=== PATIENT | female | born 1975 | race Caucasian/White ===

== ENCOUNTER 2017-08-08 10:47 | Emergency (ER) | payer BC ==
--- OUTSIDE RECORDS SUMMARY | 2017-08-08 11:02 | XMS REPORT ---
:1975 External Reference #:[id number] Author Organization [facility] Address [address] [place] [address] Phone [phone] Care Team Providers Name Role Phone HCP given Primary Care Physician Unavailable Payers Type Date Identification Numbers Payment Provider Subscriber Commercial Effective: Policy Number: Wero Yoder 2016 [id number] Ind/Ppo/Hmo/Pos PayID: [id number] [address] [address] [place] [address] Problems Date Description Provider Status Onset: 07/30/2012 Psoriasis Agustin Bergeron Active Onset: 01/05/2015 Generalized anxiety disorder Yordan Johnston D.O. Active Onset: 01/05/2015 Prolonged depressive adjustment Yordan Johnston D.O. 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 Active Family History Date Family Member(s) Problem(s) Comments General Alcoholism father General Cancer grandparents (both sides) General Heart Problems maternal side General Mental Illness maternal side Children 3 2 daughters and 1 son First Son 8 First Daughter 21 Second Daughter 20 Siblings 2 brothers Social History Type Date Description Comments Education Highest Level Completed College Marital Status Occupation Retail Sales Work Status Currently Working Cigarette Use Former Cigarette Smoker ETOH Use Rarely consumes alcohol Recreational Drug Use Has Used Illegal Drugs In The Past Smoking Patient is a former smoker Daily Caffeine Consumes Caffeine Daily Caffeine Consumes on average 5 cups of coffee per day Daily Caffeine Consumes on average 2 cups of tea per day Enjoy Exercising Enjoys exercising Sun Exposure Uses sunscreen Seat Belt/Car Seat always uses seat belt Guns in Home Yes, Locked Up Smoke Alarms Negative For Yes smoke alarm Contraceptive Methods Current methods include tubal ligation Age 1st [place] 12 Years Old # Partners in a Lifetime Partners 5-10 STD's No STD History Sexual Hx text Patient states heterosexual Allergies, Adverse Reactions, Alerts Date Description Reaction Status Severity Comments 07/30/2012 NKDA active Medications Medication Date Status Form Strength Qnty SIG Indications Ordering Provider Methylphenidate 07/15 Active Tablets 20mg 30tab 1 by mouth F90.0 Sopchak, s three times Yordan, a day D.O. Amitriptyline 06/24 Active Tablets 10mg 1 by mouth Sopchak, HCL every night Yordan, at bedtime D.O. Arnica 05/06 Active Gel 45gm use twice a M25.561 day to knee Yordan, for pain D.O. Niacin 05/05 Active one po daily Fish Oil 05/05 Active one po daily Probiotic 05/05 Active one po daily Biotin 05/05 Active one po daily Gabapentin 07/02 Active Capsules 300mg 270ca 1 by mouth F41.1 ps three times Yordan, a day D.O. Depo-Provera 07/01 Active Suspension 150mg/ml administer 1 milliliters intramuscul suly every 90 days for control Wellbutrin XL 11/29 Active Tablets ER 300mg 90tab 1 by mouth F41.1 24HR s every day Yordan, D.O. Valtrex 09/12 Active Tablets 500mg 42tab give 1 gram B00.1 s orally Yordan, every 12 D.O. hours for 10 days as needed for cold sores Xanax 08/23 Active Tablets 0.5mg 90tab 1 tab by F41.9 s mouth three Yordan, times a D.O. day, as needed, for panic attacks code a Kelp 07/22 Active Tablets Harrison Cyndee Hughes Multiple Vitamin 07/21 Active Tablets Harrison Saul, M.D. Vitamin D- 07/21 Active Tablets one tab po Harrison daily if Saul, not in your M.D. mvi Calcium Active Unknown Vitamin C Active 500mg 2 daily Unknown Vitamin B12 Active 2500mcg 1 daily Unknown Magnesium Active Unknown Methylphenidate 05/06 Hx Tablets 10mg 90tab 1 tab by F90.0 Marlysk, s mouth three Yordan, - times a day D.O. 07/15 with 5mg tablet Methylphenidate 05/06 Hx Tablets 5mg 90tab 1 tab three F90.0 Sopchak, HCL s times a day Yordan, - with 10mg D.O. 07/15 Nortriptyline 05/06 Hx Capsules 10mg 60cap take 1-2 G47.00 Sopchak, s capsule by Yordan, - mouth D.O. 06/24 nightly /2017 (30-60 minutes before bed) Amitriptyline 04/01 Hx Tablets 10mg 30tab 1 by mouth G47.00 Sopchak, HCL s every night Yordan, - at bedtime D.O. 05/06 Methylphenidate 04/01 Hx Tablets ER 27mg 30tab take one F90.0 Sopalexysk, HCL 24HR s tablet by Yordan, - mouth every D.O. 05/06 maximum daily dose=one tablet Meloxicam 12/25 Hx Tablets 15mg 30tab Take One M25.561 Harrison s Tablet By Saul, - Mouth Once M.D. 05/05 Daily For Joint Pain Buspirone HCL 01/02 Hx Tablets 7.5mg 180ta 1 cap by F41.1 Vickie, bs mouth twice Yordan, - a day D.O. 07/01 Wellbutrin XL 11/29 Hx Tablets ER 150mg 14tab 1 by mouth 300.02 Harrison 24HR s every Saul, - morning for M.D. 11/29 4 days and then increase to 300 mg qam Gabapentin 07/31 Hx Capsules 100mg 270ca 1 cap three S29.009A Vickie, ps times a day Yordan, - or just at D.O. 07/02 bedtime needed chest wall pain Fluoxetine HCL 07/25 Hx Capsules 20mg 120ca 4 by mouth 301.4 Vickie, ps every day Yordan, - D.O. 12/20 296.31 309.1 Fluoxetine HCL 01/26/2014 - Hx Capsules 20mg 90caps 1 daily 301.4 Sopchamiguel ángel, 07/25/2014 Yordan, D.O. Fluoxetine 01/20/2014 - Hx Capsules 20mg 90caps 3 qd, wean 301.4 Silcoff, 01/26/2014 down to 1 qd Saul over next 6 M.D. weeks Methylphenidate HCL 09/30/2013 - Hx Tablets 10mg 90tabs 1 tab by F90.0 Vickie, 04/01/2017 mouth Yordan, bid-tid: D.O. every morning, noon and every late afternoon Concerta 08/06/2013 - Hx Tablets ER 18mg 60tabs 1 po 8 am, aHrrison, 09/30/2013 and 12:30 if Saul, needed M.D. Fluoxetine 07/29/2013 - Hx Capsules 20mg 90caps 3 qd, wean 301.4 Silcoff, 09/14/2013 down to 1 qd Saul over next 6 M.D. weeks Fluoxetine HCL 06/30/2013 - Hx Capsules 40mg 60caps 2 qam 301.4 Silcoff , 07/29/2013 Cyndee Hughes Fluoxetine HCL 05/02/2013 - Hx Capsules 20mg 90caps Take 2 caps 301.4 Silcoff, 06/30/2013 for several caroline Hughes then M.D. increase to 3 caps qam Lorazepam 05/02/2013 - Hx Tablets 0.5mg 60tabs 1 po bid, Silcoff, 01/26/2014 prn, for Saul, anxiety M.D. Fluvoxamine Maleate 01/21/2013 - Hx Tablets 50mg 21tabs 1 tab qhs x 296.31 Silcoff, 02/13/2013 7 days then Saul, increase 2 M.D. tabs Fluvoxamine Maleate 01/21/2013 - Hx Tablets 100mg 60tabs 1.5 po x 7d, 296.31 Silcoff, 04/11/2013 then Saul, increase to M.D. 2 tabs qhs Voltaren 01/21/2013 - Hx Gel 1% 100gram 2-4 grams 786.50 Silcoff, 07/31/2014 apply twice Saul a day x 3 M.D. wks, prn Fish Oil 12/27/2012 - Hx Capsules otc 1 po qod Silcoff, 04/09/2015 alternating Saul with Star.Lakeshia flaxseed Dexmethylphenidate 08/23/2012 - Hx Tablets 5mg 120tabs 1 -2 qam and 314.00 Silcoff, HCL 08/06/2013 q-afternoon, Saul prn M.D. Lorazepam 08/23/2012 - Hx Tablets 0.5mg 60tabs 1 po bid, Silcoff, 10/28/2012 prn, for Saul anxiety M.D. Tramadol HCL 07/30/2012 - Hx Tablets 50mg 60tabs 1-q6 hours 719.47 Sopchak, 12/11/2014 Zaida Farr Clobetasol 07/30/2012 - Hx Cream 0.05% 60g apply small 696.8 Silcoff, Propionate Emollient 08/13/2012 amt to Saul affected M.D. areas bid for up to 2 weeks Lorazepam 07/22/2012 - Hx Tablets 60tabs 1 po bid, Unknown 08/23/2012 prn, for anxiety [facility] Wort 07/22/2012 - Hx Powder unknown Silcoff, 02/28/2013 dose, takes moe Hughes M.D. depression Xanax 07/21/2012 - Hx Tablets 60tabs 1 -2 tab po Unknown 08/23/2012 tid, prn Ritalin 07/21/2012 - Hx Tablets 60tabs 1 po bid: Unknown 08/23/2012 qam, qnoon Flaxseed 07/21/2012 - Hx Misc qd Silcoff, 05/05/2017 Cyndee Hughes Iron - Hx Tablets 325(65 1 po daily Unknown 11/28/2014 Fe) mg Magnesium - Hx Capsules 2 po daily Unknown 11/28/2014 Immunizations CPT Code Status Date Vaccine Lot # [id number] Given 09/13/2014 Adacel or Boostrix, TDaP [id number] Vital Signs Date Vital Result Comment 07/15/2017 BP Systolic 128 mmHg BP Diastolic 84 mmHg 06/25/2017 BP Systolic 152 mmHg BP Diastolic 88 mmHg Weight 112.00 lb 05/06/2017 BP Systolic 140 mmHg BP Diastolic 88 mmHg Weight 115.00 lb with sneakers 04/01/2017 BP Systolic 138 mmHg BP Diastolic 88 mmHg Height 64.25 inches 5'4.25" Weight 112.00 lb BMI (Body Mass Index) 19.1 kg/m2 12/25/2016 BP Systolic 132 mmHg BP Diastolic 80 mmHg Weight 118.00 lb 07/02/2016 BP Systolic 130 mmHg BP Diastolic 80 mmHg Height 66 inches 5'6" Weight 120.00 lb BMI (Body Mass Index) 19.4 kg/m2 01/03/2016 BP Systolic 122 mmHg BP Diastolic 82 mmHg Height 64.5 inches 5'4.50" Weight 124.00 lb BMI (Body Mass Index) 21.0 kg/m2 04/10/2015 BP Systolic 122 mmHg BP Diastolic 60 mmHg Weight 149.00 lb 01/05/2015 BP Systolic 122 mmHg BP Diastolic 76 mmHg Weight 144.00 lb w/shoes 11/29/2014 BP Systolic 124 mmHg BP Diastolic 86 mmHg Height 65 inches 5'5" Weight 143.00 lb shoes on BMI (Body Mass Index) 23.8 kg/m2 09/13/2014 BP Systolic 120 mmHg BP Diastolic 70 mmHg Weight 152.00 lb shoes on 07/31/2014 BP Systolic 112 mmHg BP Diastolic 78 mmHg Height 65 inches 5'5" Weight 150.00 lb BMI (Body Mass Index) 25.0 kg/m2 Last Menstrual Period [id number] 11/14/2013 BP Systolic 108 mmHg BP Diastolic 71 mmHg Heart Rate 56 /min Body Temperature 98.6 F Weight 111.00 lb w/shoes 09/30/2013 BP Systolic 109 mmHg BP Diastolic 76 mmHg Heart Rate 55 /min Height 54.50 inches 4'6.50" Weight 105.00 lb BMI (Body Mass Index) 24.9 kg/m2 05/23/2013 BP Systolic 110 mmHg BP Diastolic 66 mmHg Heart Rate 56 /min Height 64.5 inches Weight 105.00 lb BMI (Body Mass Index) 17.7 kg/m2 05/02/2013 BP Systolic 125 mmHg BP Diastolic 74 mmHg Heart Rate 61 /min Weight 105.00 lb 02/28/2013 BP Systolic 120 mmHg BP Diastolic 73 mmHg Heart Rate 53 /min Weight 108.00 lb BMI (Body Mass Index) 17.8 kg/m2 01/21/2013 BP Systolic 102 mmHg BP Diastolic 69 mmHg Heart Rate 55 /min Height 65.25 inches 5'5.25" shoes on Weight 113.00 lb shoes on BMI (Body Mass Index) 18.7 kg/m2 12/27/2012 BP Systolic 110 mmHg BP Diastolic 60 mmHg Heart Rate 61 /min Weight 106.00 lb Last Menstrual Period [id number] 08/23/2012 BP Systolic 119 mmHg BP Diastolic 66 mmHg Heart Rate 52 /min Weight 107.00 lb 07/30/2012 BP Systolic 115 mmHg BP Diastolic 71 mmHg Heart Rate 54 /min Height 64 inches 5'4" Weight 102.00 lb BMI (Body Mass Index) 17.5 kg/m2 Results Test Date Test Result H/L Range Note Lipid Profile (Trig/Chol/HDL) 07/08/2017 Triglycerides 54 mg/dL 1 Cholesterol 198 mg/dL 2 HDL Cholesterol 71.4 mg/dL 3 LDL Cholesterol 116 mg/dL 4 Laboratory test finding 07/08/2017 TSH (Thyroid Stim Horm) 0.64 mcIU/mL 0.34-5.60 5 Comp Metabolic Panel 07/08/2017 Sodium 138 mmol/L 133-145 Potassium 4.3 mmol/L 3.5-5.0 Chloride 106 mmol/L 101-111 Co2 Carbon Dioxide 27 mmol/L 22-32 Anion Gap 5 mmol/L 2-11 Glucose 99 mg/dL 70-100 Blood Urea Nitrogen 14 mg/dL 6-24 Creatinine 0.72 mg/dL 0.51-0.95 BUN/Creatinine Ratio 19.4 8-20 Calcium 9.4 mg/dL 8.6-10.3 Total Protein 6.5 g/dL 6.4-8.9 Albumin 4.1 g/dL 3.2-5.2 Globulin 2.4 g/dL 2-4 Albumin/Globulin Ratio 1.7 1-3 Total Bilirubin 0.50 mg/dL 0.2-1.0 Alkaline Phosphatase 26 U/L Low 34-104 Alt 23 U/L 7-52 Ast 24 U/L 13-39 Egfr Non- 88.0 >60 Egfr 113.2 >60 6 Laboratory test finding 07/08/2017 Vitamin B12 1385 pg/mL High 180-914 7 Magnesium 2.2 mg/dL 1.9-2.7 8 CBC Auto Diff 07/08/2017 White Blood Count 5.4 10^3/uL 3.5-10.8 Red Blood Count 4.08 10^6/uL 4.0-5.4 Hemoglobin 13.0 g/dL 12.0-16.0 Hematocrit 38 % 35-47 Mean Corpuscular Volume 92 fL 80-97 Mean Corpuscular Hemoglobin 32 pg High 27-31 Mean Corpuscular HGB Conc 35 g/dL 31-36 Red Cell Distribution Width 13 % 10.5-15 Platelet Count 345 10^3/uL 150-450 Mean Platelet Volume 8 um3 7.4-10.4 Abs Neutrophils 3.3 10^3/uL 1.5-7.7 Abs Lymphocytes 1.7 10^3/uL 1.0-4.8 Abs Monocytes 0.3 10^3/uL 0-0.8 Abs Eosinophils 0.1 10^3/uL 0-0.6 Abs Basophils 0.1 10^3/uL 0-0.2 Abs Nucleated RBC 0 10^3/uL Granulocyte % 60.1 % 38-83 Lymphocyte % 31.0 % 25-47 Monocyte % 5.7 % 1-9 Eosinophil % 1.6 % 0-6 Basophil % 1.6 % 0-2 Nucleated Red Blood Cells % 0 Laboratory test 07/08/2017 Vitamin D Total 62.2 ng/mL High 20-50 9 finding 25(Oh) Laboratory test 06/25/2017 Surgical Pathology SEE RESULT BELOW 10 finding Xray 12/25/2016 X-Ray, Knee, 3 Views, <pending> RT Urine Drug Screen 07/02/2016 Ua Cocaine - Inhouse Ua Opiates - Ua Amphetamines - Urine Methanphetamines - Urine Benzodiazepines QN [place] - Urine Oxycodone QL - Laboratory test finding 04/30/2015 Throat Beta Strep Culture SEE RESULT BELOW 11 Rapid Strep Molecular Negative Negative 12 Urinalysis Profile 12/04/2014 Urine Color Yellow Urine Appearance Cloudy Urine Specific [place] 1.025 1.010-1.030 Urine pH 6.0 5-9 Urine Urobilinogen Negative Negative Urine Ketones Trace Negative Urine Protein 1+(30 mg/dL) Negative Urine Leukocytes Negative Negative Urine Blood 2+ Negative Urine Nitrite Negative Negative Urine Bilirubin Negative Negative Urine Glucose Negative Negative Urine White Blood Cell Absent Absent Urine Red Blood Cell 2+(6-10/hpf) Absent Urine Bacteria Absent Absent Urine Squamous Epithelial Cell Present Absent Urine Hyaline Casts Present Absent Laboratory test finding 12/04/2014 Magnesium 2.0 mg/dL 1.9-2.7 Creatine Kinase(CK) 106 U/L 10-223 Troponin-I (TnI) 0.00 ng/mL <0.03 13 TSH (Thyroid Stim Horm) 0.91 ?IU/mL 0.34-5.60 Comp Metabolic Panel 12/04/2014 Sodium 137 mmol/L 133-145 Potassium 3.6 mmol/L 3.5-5.0 Chloride 105 mmol/L 101-111 Co2 Carbon Dioxide 26 mmol/L 22-32 Anion Gap 6 mmol/L 2-11 Glucose 95 mg/dL 70-100 Blood Urea Nitrogen 13 mg/dL 6-24 Creatinine 0.64 mg/dL 0.51-0.95 BUN/Creatinine Ratio 20.3 High 8-20 Calcium 9.4 mg/dL 8.6-10.3 Total Protein 7.0 g/dL 6.4-8.9 Albumin 4.3 g/dL 3.2-5.2 Globulin 2.7 g/dL 2-4 Albumin/Globulin Ratio 1.6 1-3 Total Bilirubin 0.50 mg/dL 0.2-1.0 Alkaline Phosphatase 52 U/L 34-104 Alt 16 U/L 7-52 Ast 18 U/L 13-39 Egfr Non- 102.3 >60 Egfr 131.5 >60 14 Laboratory test finding 12/04/2014 Lactic Acid 1.0 mmol/L 0.5-2.2 Inr/Protime 12/04/2014 Inr 1.00 0.78-1.07 CBC Auto Diff 12/04/2014 White Blood Count 6.3 10^3/uL 4.8-10.8 Red Blood Count 4.44 10^6/uL 4.0-5.4 Hemoglobin 13.1 g/dL 12.0-16.0 Hematocrit 40 % 35-47 Mean Corpuscular Volume 90 fL 80-97 Mean Corpuscular Hemoglobin 30 pg 27-31 Mean Corpuscular HGB Conc 33 g/dL 31-36 Red Cell Distribution Width 13 % 10.5-15 Platelet Count 376 10^3/uL 150-450 Mean Platelet Volume 8 um3 7.4-10.4 Abs Neutrophils 4.3 10^3/uL 1.5-7.7 Abs Lymphocytes 1.2 10^3/uL 1.0-4.8 Abs Monocytes 0.4 10^3/uL 0-0.8 Abs Eosinophils 0.2 10^3/uL 0-0.6 Abs Basophils 0.1 10^3/uL 0-0.2 Abs Nucleated RBC 0 10^3/uL Granulocyte % 69.4 % 38-83 Lymphocyte % 19.6 % Low 25-47 Monocyte % 6.8 % 1-9 Eosinophil % 3.1 % 0-6 Basophil % 1.1 % 0-2 Nucleated Red Blood Cells % 0.1 Urine Drug SCR ED 12/04/2014 Amphetamine Ur Screen None Detected None Detect & [facility] Barbiturates Urine Screen None Detected None Detect Benzodiazepine Urine Screen None Detected None Detect Urine Cannabinoids Screen None Detected None Detect Urine Cocaine Screen None Detected None Detect Urine Opiates Screen None Detected None Detect Urine Phencyclidine Screen None Detected None Detect 15 Laboratory test 10/20/2013 Surgical Pathology RUN DATE: , 17 finding <SEE NOTE> Human Papilloma Virus 12/29/2012 Human Papillomavirus See Comment 18 Source Human Papillomavirus High Risk Negative Negative 19 Laboratory test finding 12/27/2012 Cytology RUN DATE: , 21 <SEE NOTE> Urine Drug Screen 08/23/2012 Urine THC Screen - Inhouse Ua Cocaine - Ua Opiates - Ua Amphetamines - Urine Methanephrine Random - Urine Phenyclidine GC/MS - Urine Mdma QN Random - Ua Barbiturates - Urine Benzodiazepines QN [place] - Ua Methadone - Urine Tricyclc Antidepress RND - Urine Oxycodone QL - Ua Inhouse 08/23/2012 Ua Glucose - Ua Bilirubin - Ua Ketones - Ua Specific [place] 1.010 Ua Blood - Ua PH 8.0 Ua Protein tr Ua Urobilinogen - Ua Nitrite - Ua Leukocytes - Laboratory test finding 07/30/2012 TSH (Thyroid Stimulating 0.89 miu/mL 0.34-5.60 Horm) Comp Metabolic Panel 07/30/2012 Sodium 138 mmol/L 133-145 Potassium 4.2 mmol/L 3.5-5.0 Chloride 101 mmol/L 101-111 Co2 Carbon Dioxide 29.0 mmol/L 22-32 Anion Gap 8.0 mmol/L 2-11 Glucose 76 mg/dL 70-100 Blood Urea Nitrogen 8 mg/dL 6-24 Creatinine 0.70 mg/dL 0.50-1.40 BUN/Creatinine Ratio 11.4 8-20 Calcium 10.6 mg/dL High 8.1-9.9 Total Protein 6.6 g/dL 6.2-8.1 Albumin 4.5 g/dL 3.6-5.4 Globulin 2.1 g/dL 2-4 Albumin/Globulin Ratio 2.1 1-3 Total Bilirubin 0.8 mg/dL 0.4-1.5 Alkaline Phosphatase 45 U/L 30-110 Alt 40 U/L 14-54 Ast 41 U/L 12-42 Egfr Non- 93.2 >60 Egfr 119.8 >60 22 CBC Auto Diff 07/30/2012 White Blood Count 5.5 10^3/uL 4.8-10.8 Red Blood Count 4.33 10^6/uL 4.0-5.4 Hemoglobin 14.0 g/dL 12.0-16.0 Hematocrit 40 % 35-47 Mean Corpuscular Volume 93 fL 80-97 Mean Corpuscular Hemoglobin 32 pg High 27-31 Mean Corpuscular HGB Conc 35 g/dL 31-36 Red Cell Distribution Width 13 % 10.5-15 Platelet Count 273 10^3/uL 150-450 Mean Platelet Volume 9 um3 7.4-10.4 Abs Neutrophils 3.5 10^3/uL 1.5-7.7 Abs Lymphocytes 1.6 10^3/uL 1.0-4.8 Abs Monocytes 0.3 10^3/uL 0-0.8 Abs Eosinophils 0 10^3/uL 0-0.6 Abs Basophils 0.1 10^3/uL 0-0.2 Abs Nucleated RBC 0 10^3/uL Granulocyte % 64.0 % 38-83 Lymphocyte % 28.7 % 25-47 Monocyte % 5.6 % 1-9 Eosinophil % 0.5 % 0-6 Basophil % 1.2 % 0-2 Nucleated Red Blood Cells % 0.1 Ua Inhouse 07/30/2012 Ua Glucose - Ua Bilirubin - Ua Ketones - Ua Specific [place] 1.000 Ua Blood - Ua PH 7.5 Ua Protein - Ua Urobilinogen - Ua Nitrite - Ua Leukocytes - 1 Desirable: <150 Borderline High: 150-199 High: 200-499 Very High: >500 2 Desirable: <200 Borderline High: 200-239 High: >239 3 Low: <40 Desirable: 40-60 High: >60 4 Desirable: <100 Near Optimal: 100-129 Borderline High: 130-159 High: 160-189 Very High: >189 5 FASTING 12 HOUR 6 Because ethnic data is not always readily available, this report includes an eGFR for both -Americans and non- Americans. The National Kidney Disease Education Program (NKDEP) does not endorse the use of the MDRD equation for patients that are not between the ages of 18 and 70, are , have extremes of body size, muscle mass, or nutritional status, or are non- or non-. According to the National Kidney Foundation, irrespective of diagnosis, the stage of the disease is based on the level of kidney function: Stage Description GFR(mL/min/1.73 m(2)) 1 Kidney damage with normal or decreased GFR 90 2 Kidney damage with mild decrease in GFR 60-89 3 Moderate decrease in GFR 30-59 4 Severe decrease in GFR 15-29 5 Kidney failure <15 (or dialysis) 7 Normal Range 180 to 914 Indeterminate Range 145 to 180 Deficient Range <145 8 FASTING 12 HOUR 9 FASTING 12 HOUR 10 SEE RESULT BELOW Name: MARIE YODER : [address]: Yordan Johnston DO Acct: [id number] Unit: [id number] AGE: 42 Location: [facility] Re06/25/17 SEX: F Status: REG REF SPEC: [id number] HOLLY: 06/25/[address] [facility] [address]: Yordan Johnston DO REQ: [id number] RECD: 06/26/17 STATUS: SOUT _ ORDERED: LEVEL 4 COMMENTS: [id number] FINAL DIAGNOSIS Skin, left leg, biopsy: -- Dermatofibroma. -- Lesional cells extend to at least one lateral specimen edge. CLINICAL HISTORY 3 mm discoloration noted 6 weeks ago, discoloration now 2-4 mm GROSS DESCRIPTION The specimen is received in formalin labeled, Left Leg, and consists of a 0.2 cm vo-white circular skin punch excised to a depth of 0.2 cm which is submitted entirely in one cassette. Signed (signature on file) Shireen Alcala MD [id number] END OF REPORT * ML=Testing performed at Main Lab DEPARTMENT OF PATHOLOGY, [address] [place] [address] Mirza Cameron M.D. Director [place] # [id number] 11 SEE RESULT BELOW Name: MARIE YODER : [address]: Zach Thurman MD Acct: [id number] Unit: [id number] AGE: 39 Location: [facility] Re04/30/15 SEX: F Status: DEP ER SPEC: [id number] HOLLY: 04/30/15-1339 [facility] [address]: Zach Thurman MD REQ: [id number] RECD: 04/30/15 STATUS: SUNIL ROLDAN DR: Yordan Johnston DO _ SOURCE: THROAT SPDESC: ORDERED: Throat Beta Str Procedure Result Verified Site Throat Beta Strep Culture Final 05/02/15- 0741 ML Negative For Group A Beta Streptococcus * ML - MAIN LAB ([facility]) . END OF REPORT * ML=Testing performed at Main Lab DEPARTMENT OF PATHOLOGY, [address] [place] [address] Mirza Cameron M.D. Director [facility] # [id number] 12 Solvent Plant Operator: [id number] ROXI CORTES The outdoor adventure instructor and regulatory agencies both recommend that a throat culture for beta strep be performed if a Rapid Group A Strep assay yields a negative result. Therefore a culture will be automatically performed on all negative samples. 13 Reference Range and Interpretation: TnI (ng/mL) Interpretation Less Than 0.03 ng/mL Not supportive of diagnosis of [place] 0.03 - 0.50 ng/mL Indeterminate: suggest serial studies if clinically indicated. Greater than 0.5 ng/mL Consistent with diagnosis of [place] 14 Because ethnic data is not always readily available, this report includes an eGFR for both -Americans and non- Americans. The National Kidney Disease Education Program (NKDEP) does not endorse the use of the MDRD equation for patients that are not between the ages of 18 and 70, are , have extremes of body size, muscle mass, or nutritional status, or are non- or non-. According to the National Kidney Foundation, irrespective of diagnosis, the stage of the disease is based on the level of kidney function: Stage Description GFR(mL/min/1.73 m(2)) 1 Kidney damage with normal or decreased GFR 90 2 Kidney damage with mild decrease in GFR 60-89 3 Moderate decrease in GFR 30-59 4 Severe decrease in GFR 15-29 5 Kidney failure <15 (or dialysis) 15 The urine specimen was tested at the listed cutoffs: Drug class test level (ng/mL) Amphetamines 500 Barbituates 200 Benzodiazepine metabolites 200 Cocaine metabolites 150 Cannabinoids 50 Opiates 300 Pcp 25 This is a screening procedure. Positive results are not confirmed. Specimen was received without chain of custody. Results should be used for medical purposes only. 16 awaiting further results that will be reported in an addendum from [facility] 17 RUN DATE: 11/01/13 [facility] LAB LIVE PAGE 1 RUN TIME: [address] [place] [address] Specimen Inquiry Name: YODERMARIE : [address]: Saul Terry MD Acct: [id number] Unit: [id number] AGE: 38 Location: [facility] Re10/20/13 SEX: F Status: REG REF SPEC: [id number] HOLLY: 10/20/13-[address]: Saul Terry MD REQ: [id number] RECD: 10/20/13277 STATUS: SOUT _ ORDERED: YODER CONSULT, LEVEL III Consultation with Dr. Darine Narayan at [place] [facility] [employer], [place] [id number], outside accession number [id number],our surgical [id number] reported on 2013 and received on 11/01/2013. Original consultation report scanned into Pathology Consults. Final Diagnosis: Middle back mass ([id number]; 10/20/2013): Pseudocyst with necrobiotic and reactive changes. Diagnosis Comment: I have reviewed the slides representing tissue from the middle back of the above patient and see only a Pseudocyst with a suggestion of some necrobiotic change and a variety of non-specific reactive changes. Given the clinical presentation, I doubt that this lesion is associated with the underlying synovium, although radiographic and clinical information might be of some assistance. In passing, I would note that I have seen similar appearing lesions in patients receiving alternative medical therapies, such as "cupping ", and there might be some value in obtaining any relevant history. Addendum Signed (signature on file) Shireen Alcala MD 0934 FINAL DIAGNOSIS Skin and subcutaneous tissue, mid back, partial excision: Pseudocyst with myxoid material; see comment. COMMENT: Histologic sections show dermal and subcutaneous tissue with a synovium-like pseudocystic lining. Myxoid material and spindled myofibroblastic cells are present. The histologic findings are nonspecific but could represent a benign CONTINUED ON NEXT PAGE * ML=Testing performed at Main Lab DEPARTMENT OF PATHOLOGY, [facility] [employer] [place] [address] Mirza Cameron M.D. Director [facility] # [id number] RUN DATE: 11/01/13 [facility] LAB LIVE PAGE 2 RUN TIME: 933 [facility] [employer] [place], [place] [address] Specimen Inquiry Patient: MARIE YODER [id number] (Continued) SPECIMEN COMMENTS (Continued) synovial cyst. The findings were discussed with Dr. Terry who provided the additional clinical history that this approximately 5 cm. soft, mobile mass was present for a long duration over the patient's midline spine. Given this additional clinical history, the histologic possibility of a meningocele is also under consideration. This case is being sent for expert consultation to the soft tissue pathologists at [facility]. Their findings will be reported verbatim in an addendum. Correlation with clinical and imaging findings is recommended. Dr. Cameron has reviewed this case and agrees. CLINICAL HISTORY Been there for a while", painful when leaning on symmetric round, non-erythematous, moveable, soft gel like. PRE-OPERATIVE DIAGNOSIS 214.8 GROSS DESCRIPTION The specimen is received in formalin labeled Marie Yoder, Skin Mid Back and consists of a 3.8 x 2.7 x 1.8 cm. aggregate of vo-ward, rubbery, soft tissue and possible skin. The specimen is serially sectioned and entirely submitted in cassettes A through C. Signed (signature on file) Shireen Alcala MD 1800 END OF REPORT * ML=Testing performed at Main Lab DEPARTMENT OF PATHOLOGY, [address] [place] [address] Mirza Cameron M.D. Director [facility] # [id number] RESULT: Ectocervical/Endocervical 19 For types 16, 18, 31, 33, 35, 39, 45, 51, 52, 56, 58, 59 and 68. Test Performed by: [facility] - [address] [address] [address] Passenger Agent: Myron Stauffer III, M.D. 20 12/29/12 Normal pap, waiting for HPV results. 21 RUN DATE: 12/29/12 [facility] LAB LIVE PAGE 1 RUN TIME: [address] [place] [id number] Specimen Inquiry Name: MARIE YODER : [address]: Roxanne GOOD Acct: [id number] Unit: [id number] AGE: 37 Location: [facility] Re12/27/12 SEX: F Status: REG REF SPEC: [id number] HOLLY: 12/27/12-[address] [facility] [address]: Roxanne GOOD REQ: [id number] RECD: 12/28/12 STATUS: SOUT _ ORDERED: IMAGE ANALYSIS, HPV / Thin Prep FINAL DIAGNOSIS Negative for Intraepithelial lesion or Malignancy COMMENTS: Specimen sent to [facility] in [place], [place] on 12/29/12 by [id number] at 0835. Results will be reported separately. A. Ectocervical/Endocervical Specimen Adequacy: Satisfactory of evaluation Transformation zone component identified Patient Information: HPV: High risk HPV DNA testing regardless of pap results. Actual Specimen Date: 12/27/12 Last Menstrual Date: 05/11/12 Spec Date if unknown: 05/2012 Cautery: N IUD: N Lesion, grossly demonstrate: N ?: N Post Menopausal?: N Hysterectomy?: N Previous Abnormal Pap Smears?:Y If Yes, enter Diagnosis: 05/2012 Atypical Squamous cells of uncertain significance. Signed (signature on file) YAJAIRA Mccain (ASCP) 12/29/12 8109 This Pap test was evaluated with the assistance of the FandeavorPrep Test Imaging System. Due to cytologic findings at the plug sorter microscope, comprehensive manual rescreening by a Slurry Tank Tender may be required. The Pap Smear is a screening test designed to aid in the detection of premalignant and malignant conditions of the uterine cervix. It is not a diagnostic procedure and should not be used as the sole means of detecting cervical cancer. Both false- positive and false- negative reports do occur. Depending on your risk status, a Pap smear shoudl be obtained and evaluated every 1-3 years. END OF REPORT * ML=Testing performed at Main Lab DEPARTMENT OF PATHOLOGY, [facility] [employer] [place], [place] [address] RUN DATE: 12/29/12 [facility] LAB LIVE PAGE 1 RUN TIME: 925 [facility] [employer] [place], [place] [address] Specimen Inquiry Patient: MARIE YODER [id number] (Continued) Mirza Cameron M.D. Director [facility] Permit #[id number] 22 Because ethnic data is not always readily available, this report includes an eGFR for both -Americans and non- Americans. The National Kidney Disease Education Program (NKDEP) does not endorse the use of the MDRD equation for patients that are not between the ages of 18 and 70, are , have extremes of body size, muscle mass, or nutritional status, or are non- or non-. According to the National Kidney Foundation, irrespective of diagnosis, the stage of the disease is based on the level of kidney function: Stage Description GFR(mL/min/1.73 m(2)) 1 Kidney damage with normal or decreased GFR 90 2 Kidney damage with mild decrease in GFR 60-89 3 Moderate decrease in GFR 30-59 4 Severe decrease in GFR 15-29 5 Kidney failure <15 (or dialysis) Procedures Date CPT Code Description Status Comment 06/25/2017 85683 Biopsy Skin Lesion Single Completed 12/25/2016 62645 X-Ray Knee,Ap&Lateral Completed Oblique Views 11/14/2013 38783 Xray Abdomen Upright/Flat Abd Completed 11/14/2013 44196 X-Ray, Lumbar Spine Complete, Completed Obl 10/19/2013 08378 Excise Benign Lesion > Completed 4CM Trunk/Arm/Leg 06/15/2013 Mammogram Completed 2013:normal, will do every 2 years for now. Encounters Type Date Location Provider CPT E/M Dx Office Visit 07/15/2017 2:30p Main Office Yordan Johnston D.O. 57087 F90.0 F41.1 G47.00 R23.8 Office Visit 06/25/2017 2:30p Main Office Yordan Johnston D.O. 79994 R23.8 Office Visit 05/06/2017 2:30p Main Office Yordan Johnston D.O. 99718 F41.1 G47.00 F90.0 M25.561 Z79.899 Office Visit 04/01/2017 3:00p Main Office Yordan Johnston D.O. 53297 M25.561 S76.201A G47.00 F90.0 F41.1 Office Visit 12/25/2016 2:15p [place] [address] M25.561 Office Visit 07/02/2016 3:00p Main Office Yordan Johnston D.O. 80574 F41.1 F90.0 Z51.81 Z79.899 Office Visit 01/03/2016 2:00p Main Office Yordan Johnston D.O. 89265 F41.1 F90.0 Z00.00 Office Visit 04/10/2015 12:55p Main Office Yordan Johnston D.O. 02212 F41.1 F43.21 F90.0 F90.9 Office Visit 01/05/2015 3:00p Main Office Yordan Johnston D.O. 97664 300.02 309.1 314.00 Office Visit 11/29/2014 11:40a Main Office Oralia Weaver, RPA-C 66862 300.02 309.1 Office Visit 09/13/2014 11:40a Main Office Oralia Weaver, RPA-C 63486 611.79 v06.1 v07.2 Office Visit 07/31/2014 2:00p Main Office Oralia Weaver, RPA-C 91312 V70.0 314.00 296.31 301.4 959.11 V76.19 V65.49 Office Visit 11/14/2013 1:40p Main Office Roxanne Laguerre P.A. 97524 724.9 553.1 789.07 789.35 Office Visit 09/30/2013 11:20a Main Office Roxanne Laguerre P.A. 70045 214.9 314.00 296.31 Office Visit 05/23/2013 11:40a Main Office Roxanne Laguerre P.A. 67255 296.31 301.4 Office Visit 05/02/2013 4:00p Main Office Roxanne Laguerre P.A. 90944 296.31 301.4 611.79 Office Visit 02/28/2013 1:40p Main Office Roxanne Laguerre P.A. 10770 301.4 296.31 783.21 Office Visit 01/21/2013 4:20p Main Office Roxanne Laguerre P.A. 88480 296.31 786.50 301.4 300.00 307.50 Office Visit 12/27/2012 3:00p Main Office Roxanne Laguerre P.A. 02896 V72.31 795.09 V76.10 Office Visit 08/23/2012 1:20p Main Office Roxanne Laguerre P.A. 39931 788.1 275.42 314.00 V58.69 Office Visit 07/30/2012 1:40p Main Office Roxanne Laguerre, P.A. 16727 788.1 719.47 696.8 780.79 V69.1 Office Visit 03/08/2003 2:45p Main Office nadiya 23124 719.47 278.00 Plan of Care Future Appointment(s):09/16/2017 2:45 pm - Yordan Johnston D.O. at Main [facility]/15/2017 - Yordan Johnston D.O.F90.0 Attn-defct hyperactivity disorder, predom inattentive typeNew Medication:Methylphenidate HCL 20 mgFollow up:2 month recheck ADHD/Anxiety with GAD7 and ADHD self mfbwhlU61.1 Generalized anxiety ojnsxsylN82.00 Insomnia, yasksnlcfzaJ08.8 Other skin changes
[2017-08-08 11:29] VITALS: BP 126/89
--- NOTE | 2017-08-08 12:04 | UC ---
Hand/Wrist HPI - HPI Summary HPI Summary: Pt presents with right hand pain s/p falling this morning while running. She tells me that she was running and tripped on the sidewalk. Fell forward and sustained a FOOSH injury. Has never had issues with this wrist in the past. Has not taken anything for this yet today. Denies numbness or tingling. - History Of Current Complaint Chief Complaint: UCUpperExtremity Stated Complaint: HAND INJURY Time Seen by Provider: 08/08/17 12:01 Hx Obtained From: Patient Hx Last Menstrual Period: 2 weeks Mechanism Of Injury: FOOSH Onset/Duration: Sudden Onset Severity Initially: Moderate Severity Currently: Moderate Pain Intensity: 7 Character Of Pain: Aching, Stiffness Aggravating Factor(s): Movement Alleviating Factor(s): Rest - Allergies/Home Medications Allergies/Adverse Reactions: Allergies Allergy/AdvReac Type Severity Reaction Status Date / Time No Known Allergies Allergy Verified 08/08/17 11:29 PMH/Surg Hx/FS Hx/Imm Hx Previously Healthy: Yes Psychological History: Anxiety - Surgical History Surgical History: Yes Surgery Procedure, Year, and Place[place] [place]. LUMP REMOVED FROM BACK-LUIS. umbilical hernia repair - Family History Known Family History: Positive: Unknown - Social History Occupation: Employed Full-time Lives: With Family Alcohol Use: Daily Substance Use Type: None Smoking Status (MU): Former Smoker Type: Cigarettes Amount Used/How Often: 3 cigs daily When Did the Patient Quit Smoking/Using Tobacco: 2001 Review of Systems Constitutional: Negative Skin: Negative Respiratory: Negative Cardiovascular: Negative Neurovascular: Negative Musculoskeletal: Other: - Right hand pain Neurological: Negative Psychological: Negative All Other Systems Reviewed And Are Negative: Yes Physical Exam Triage Information Reviewed: Yes Appearance: Well-Appearing, No Pain Distress, Well-Nourished Vital Signs: Initial Vital Signs Temp 99.4 F 08/08/17 11:26 Pulse 70 08/08/17 11:26 Resp 18 08/08/17 11:26 BP 126/89 08/08/17 11:26 Pulse Ox 99 08/08/17 11:26 Vital Signs Reviewed: Yes Neck: Positive: Supple, Nontender Respiratory: Positive: Lungs clear, Normal breath sounds, No respiratory distress, No accessory muscle use Cardiovascular: Positive: RRR, No Murmur, Pulses Normal - Right radial and ulnar Musculoskeletal: Positive: Strength Intact - Right wrist and all fingers, ROM Intact - Right wrist and all fingers, Edema @ - Right 5th MCP joint - mild, Other: - Moderate TTP over dorsal 5th MCP joint. No obvious bony deformity. No snuffbox tenderness. Neurological: Positive: Alert, Other: - Sensations intact right hand and all fingers Psychological: Positive: Age Appropriate Behavior Skin: Positive: Other - Ventral aspect of 5th MCP joint there is a 3-4mm superficial abrasion.. Negative: rashes Hand/Wrist Course/Dx - Course Course Of Treatment: XR: IMPRESSION: No fracture of the right hand is noted. IMPRESSION: NO FRACTURE OF THE WRIST IS NOTED. Contusion to right hand. JAZIEL wrap and RICE. Ibuprofen prn pain. - Differential Dx/Diagnosis Provider Diagnoses: Right hand contusion. Fall Discharge - Discharge Plan Condition: Stable Disposition: HOME Patient Education Materials: Hand Sprain (ED) Forms: *Work Release Referrals: Yordan Johnston DO [Primary Care Provider] - Additional Instructions: If you develop a fever, shortness of breath, chest pain, new or worsening symptoms - please call your PCP or go to the ED. 1) Rest, Ice, and Elevate your hand as much as possible over the next 24-48 hours. 2) May use the JAZIEL wrap for comfort 3) May take ibuprofen 600mg every 6-8hours as needed for pain
--- NOTE | 2017-08-08 12:57 | RAD ---
Indication: Fifth finger injury. 4 views of the right fifth finger demonstrates no fracture. No other bone or joint abnormality is identified. IMPRESSION: No fracture of the right hand is noted.
--- NOTE | 2017-08-08 12:57 | RAD ---
Indication: Right wrist injury 3 views of the wrist demonstrates no fracture. No other bone or joint abnormality is identified. IMPRESSION: NO FRACTURE OF THE WRIST IS NOTED.
== END 2017-08-08 13:26 | disposition home or self-care (01) ==
LOC: UCEAST 10:47
DX: S60.221A Contusion of right hand, initial encounter (principal); W01.0XXA Fall on same level from slipping, tripping and stumbling without subsequent striking against object, initial encounter; Y92.480 Sidewalk as the place of occurrence of the external cause; Z87.891 Personal history of nicotine dependence
CPT/HCPCS: 99212; G0463

== ENCOUNTER 2018-06-06 18:43 | Emergency (ER) | payer BC ==
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
[2018-06-06] MEDS ORDERED: Ibuprofen TAB* 600 MG PO ONE (20:13)
[2018-06-06] MEDS ORDERED: Diazepam TAB(*) 5 MG PO ONE (20:14)
[2018-06-06 20:23] VITALS: BP 112/63
== END 2018-06-06 20:22 | disposition home or self-care (01) ==
LOC: ED 18:43
DX: M53.3 Sacrococcygeal disorders, not elsewhere classified (principal); F17.210 Nicotine dependence, cigarettes, uncomplicated; D64.9 Anemia, unspecified; F41.9 Anxiety disorder, unspecified; V03.10XA Pedestrian on foot injured in collision with car, pick-up truck or van in traffic accident, initial encounter; Y92.410 Unspecified street and highway as the place of occurrence of the external cause
CPT/HCPCS: 72110; 72220; 99282; A9270-GY